=== PATIENT | female | born 1995 | race Caucasian/White ===

== ENCOUNTER 2017-05-11 01:52 | Emergency (ER) | payer OTHER ==
[~2017-05-11] VITALS: Ht 172.7 cm; Wt 67.1 kg
[~2017-05-11 01:52] MED LIST: MACROBID100 M1 PO; PRENATAL1 TA1; REGLAN10 MG PO
== END 2017-05-11 02:32 | disposition hospice, home (50) ==
LOC: SED 01:52
DX: R10.2 Pelvic and perineal pain (principal)
CPT/HCPCS: 99284